=== PATIENT | male | born 1975 | race Caucasian/White ===

== ENCOUNTER 2019-12-21 11:02 | Emergency (ER) | payer OTHER ==
[~2019-12-21] VITALS: Ht 170.2 cm; Wt 65.8 kg
== END 2019-12-21 16:00 | disposition home or self-care (01) ==
LOC: ER 11:02
DX: M79.645 Pain in left finger(s) (principal); G62.9 Polyneuropathy, unspecified
CPT/HCPCS: 73201; 99283-25; Q9967

== ENCOUNTER 2024-08-06 09:13 | Day surgery (SDC) | payer OTHER ==
[~2024-08-06] VITALS: Ht 172.7 cm; Wt 65.5 kg
[~2024-08-06 09:13] MED LIST: Lactated Ringer's 1,000 ML IV ONE; propofoL 50 ML IV ONE
[2024-08-06] MEDS ORDERED: Lactated Ringer's 1,000 ML IV ONE (09:38)
[2024-08-06 10:47] VITALS: BP 110/81
== END 2024-08-06 10:44 | disposition home or self-care (01) ==
LOC: ORSCSDS 09:13
PROVIDERS: Surgery
PROC: 0DBN8ZX Excision of Sigmoid Colon, Via Natural or Artificial Opening Endoscopic, Diagnostic (ICD-10-PCS; principal; 2024-08-06 10:45)
PROC: 0DBK8ZX Excision of Ascending Colon, Via Natural or Artificial Opening Endoscopic, Diagnostic (ICD-10-PCS; principal; 2024-08-06 10:45)
DX: Z12.11 Encounter for screening for malignant neoplasm of colon (principal); D12.2 Benign neoplasm of ascending colon; K63.5 Polyp of colon; K64.1 Second degree hemorrhoids; E78.5 Hyperlipidemia, unspecified; Z87.891 Personal history of nicotine dependence; Z79.899 Other long term (current) drug therapy
CPT/HCPCS: 88305; J2704; J7120